=== PATIENT | male | born 2000 | race Two or more races ===

== ENCOUNTER 2021-09-15 15:24 | Emergency (ER) | payer MEDICAID, OTHER ==
[~2021-09-15] VITALS: Ht 162.6 cm; Wt 53.1 kg
[2021-09-15 18:53] VITALS: BP 139/80
[2021-09-15] MEDS ORDERED: KETOROLAC TROMETH 60MG/2ML VIAL IM ONE (19:15)
[2021-09-15] MEDS ORDERED: NAP500T PO (20:13)
== END 2021-09-15 20:59 | disposition home or self-care (01) ==
LOC: ER 15:24
DX: M43.6 Torticollis (principal)
CPT/HCPCS: 96372; 99283; J1885

== ENCOUNTER 2024-10-29 18:02 | Emergency (ER) | payer BC, MEDICAID ==
[~2024-10-29] VITALS: Ht 162.6 cm; Wt 50.9 kg
[~2024-10-29 18:02] MED LIST: NAP500T PO
--- NOTE | 2024-10-29 19:43 | DVH ---
Procedure: US TESTICULAR ULTRASOUND Study Date and Requested Time: 10/29/2024 06:22 PM History: right testicular pain Comparison: None Technique: Multiple high-resolution grayscale images of scrotal contents obtained. Color and spectral Doppler used for evaluation of testicular blood flow. Findings: Right testicle measures 4.8 x 3.2 x 2.9 cm with homogenous echotexture and normal contours. Right epi didymal head measures 1.3 cm and is within normal limits. Left testicle measures 4.4 x 2.6 x 3.1 cm with homogenous echotexture and normal contours. Left epidi dymal head measures 1.3 cm and is within normal limits. Normal testicular color and spectral Doppler flow bilaterally. No evidence of testicular torsion. Tr bayron bilateral hydroceles. Mild right-sided varicocele. Impression: No sonographic evidence of testicular abnormality. Trace bilateral hydroceles with minimal right-sided varicocele.
[2024-10-29] MEDS ORDERED: DOXY100C4 PO (20:24)
--- NOTE | 2024-10-29 20:24 | ED.PDOC ---
General HPI Comments RIGHT TESTICULAR PAIN X 0500 TODAY. RED IN COLOR. NO EDMEA NOTED. TENDER TO TOUCH. Chief Complaint: Testicle Pain Time Seen by MD: 18:17 Reviewed notes: Nurses Notes, Medications, Allergies Allergies: Coded Allergies: NO KNOWN ALLERGIES (Unverified , 10/29/24) Home Meds Active Scripts Naproxen (NAPROSYN TABLET) 500 Mg Tb, 1 TAB PO BID, #30 TAB 1 Refill Prov:VISHAL MARTINEZ DO 09/15/21 Information Source: Patient Mode of Arrival: Ambulatory Past Medical History PAST MEDICAL HISTORY: Denies Surgical History: Denies all surgeries Family History Family History: Reviewed,noncontributory to illness Social History Smoker: Non-Smoker Alcohol: Denies ETOH Use Drugs: Denies Drug Use Lives In: Home Constitutional: denies: chills, diaphoresis, fatigue, fever, malaise, sweats, weakness, others EENTM: denies: blurred vision, double vision, ear bleeding, ear discharge, ear drainage, ear pain, ear ringing, eye pain, eye redness, hearing loss, mouth alexander n, mouth swelling, nasal discharge, nose bleeding, nose congestion, nose pain, photophobia, tearing, throat pain, throat swelling, voice changes, others Respiratory: denies: cough, hemoptysis, orthopnea, SOB at rest, shortness of breath, SOB with excertion, stridor, wheezing, others Cardiovascular: denies: chest pain, dizzy spells, diaphoresis, Dyspnea on exertion, edema, irregular heart beat, left arm pain, lightheadedness, palpitations, PND, syncope, others Gastrointestinal: denies: abdomen distended, abdominal pain, blood streaked bowels, constipated, diarrhea, dysphagia, difficulty swallowing, hematemesis, melena, nausea, poor appetite, poor fluid intake, rectal bleeding, rectal pain, vomiting, others Genitourinary: reports: testicle pain; denies: burning, dysuria, flank pain, frequency, hematuria, incontinence, penile discharge, penile sore, pain, testicle swelling, urgency, others Neurological: denies: dizziness, fainting, headache, left sided numbness, left sided weakness, numbness, paresthesia, pre-existing deficit, right sided numbness, right sided weakness, seizure, speech problems, tingling, tremors, weakness, others Musculoskeletal: denies: back pain, gout, joint pain, joint swelling, muscle pain, muscle stiffness, neck pain, others Integumetry: denies: bruises, change in color, change in hair/nails, dryness, laceration, lesions, lumps, rash, wounds, others Allergic/Immunocompromised: denies: Difficulty Healing, Frequent Infections, Hives, Itching, others Hematologic/Lymphatic: denies: anemia, blood clots, easy bleeding, easy bruising, swollen glands, others Endocrine: denies: excessive hunger, excessive sweating, excessive thirst, excessive urination, flushing, intolerance to cold, intolerance to heat, unexplained weight gain, unexplained weight loss, others Psychiatric: denies: anxiety, bipolar disorder, depression, hopeless, panic disorder, schizophrenia, sleepless, suicidal, others Physical Exam General Appearance: No Apparent Distress, Normal HEENT: Normal ENT Inspection, Pharynx Normal, TMs Normal Neck: Full Range of Motion, Non-Tender, Normal, Normal Inspection Respiratory: Chest Non-Tender, Lungs Clear, No Accessory Muscle Use, No Respiratory Distress, Normal Breath Sounds Cardiovascular: No Edema, No JVD, No Murmur, No Gallop, Normal Peripheral Pulses, Regular Rate/Rhythm Breast Exam: Deferred Gastrointestinal: No Organomegaly, Non Tender, No Pulsatile Mass, Normal Bowel Sounds, Soft Genitalia: Deferred Pelvic: Deferred Rectal: Deferred Extremities: No calf tenderness, Normal capillary refill, Normal inspection, Normal range of motion, Non-tender, No pedal edema Musculoskeletal : Apperance: Normal Neurologic: Alert, dining room host II-XII nml as Tested, No Motor Deficits, Normal Affect, Normal Mood, No Sensory Deficits Cerebellar Function: Normal Reflexes: Normal Skin: Dry, Normal Color, Warm Lymphatic: No Adenopathy Was a procedure done? Was a procedure done?: No X-Ray, Labs, Meds, VS Vital Signs Date Time Temp Pulse Resp B/P (MAP) Pulse Ox O2 Delivery O2 Flow Rate FiO2 10/29/24 18:21 98.3 66 16 123/87 (99) 100 98.3 Time of 1ST Reevaluation: 18:30 Reevaluation 1ST: Unchanged Patient Education/Counseling: Diagnosis, Treatment, Prognosis, Need For Follow Up Family Education/Counseling: No Family Present SEPSIS Sepsis Screen Date sepsis recognized/suspect: Oct 29, 2024 Time Sepsis recognized/suspect: 1813 Recent Procedure: No On Antibiotic Therapy: No Respiratory Rate >20: No Heart Rate >90: No Temp<36 C (96.8 F) or >38.3 C: No SBP <90 or MAP <65 mmHG: No New Acute Mental Status Change: No Is the patient on CPAP, BIPAP,: No Physician Orders Testicular Ultrasound (10/29/24 18:17) Vital Signs Date Time Temp Pulse Resp B/P (MAP) Pulse Ox O2 Delivery O2 Flow Rate FiO2 10/29/24 18:21 98.3 66 16 123/87 (99) 100 98.3 Departure 1 Departure Time of Disposition: 20:23 Impression: Primary Impression: Testicular pain, right Disposition: 01 HOME / SELF CARE / HOMELESS Condition: Stable e-Prescriptions Doxycycline Hyclate (Doxycycline Hyclate) 100 Mg Cap 100 MG PO BID for 7 Days, #14 CAP Prov: CARMEN ROSARIO 10/29/24 Discharged With: Self Critical Care Note Critical Care Time?: No Stability Stability form required: CARMEN Ley Oct 29, 2024 20:24
[2024-10-29 20:38] VITALS: BP 126/83; PULSE 67; RESP 18; TEMP 98.3; O2SAT 98
== END 2024-10-29 20:52 | disposition home or self-care (01) ==
LOC: ER 18:02
DX: N50.811 Right testicular pain (principal)
CPT/HCPCS: 76870